=== PATIENT | male | born 1985 | race Caucasian/White ===

== ENCOUNTER 2025-11-19 16:10 | Emergency (ER) | payer OTHER, SELFPAY ==
--- NOTE | ~2025-11-19 | XR_ITS ---
EXAMINATION: XR chest 2V 11/19/2025 17:31 INDICATION: Shortness of breath and chest pain PROCEDURE: 2 view chest COMPARISON: No prior studies for comparison. FINDINGS: The lungs are clear. The cardiomediastinal silhouette is within normal limits. There are no pleural effusions. There is no pneumothorax suspected. IMPRESSION: 1: NO ACUTE CARDIOPULMONARY DISEASE. Reviewed, dictated and finalized at location O. RIALS ASSISTANT
[2025-11-19 16:46] VITALS: BP 131/87; PULSE 106; RESP 22; TEMP 36.3; O2SAT 100
--- NOTE | 2025-11-19 16:46 | ECG_ITS ---
Test Date: 2025-11-19 16:55:19 Measurements Intervals [place] Rate: 98 P: 43 MN: 130 QRS: 28 QRSD: 88 T: 28 QT: 320 QTc: 409 Interpretive Statements SINUS RHYTHM NONSPECIFIC T-WAVE ABNORMALITY- INFERIOR LEADS BORDERLINE ECG No previous ECG available for comparison Electronically Signed On 11-19-2025 20:16:32 ENTERPRISE SYSTEMS ADMINISTRATOR by Momo Barragan D.O.
--- NOTE | 2025-11-19 16:58 | ED_ITS ---
HPI - General Adult General Chief complaint: Shortness of Breath/Dyspnea <HERNANDEZ Meyer Last Filed: 11/19/25 17:04> Stated complaint: SOB, dizziness, hx anxiety but worse <HERNANDEZ Meyer Last Filed: 11/19/25 17:04> Time Seen by Provider: 11/19/25 16:58 <HERNANDEZ Meyer Last Filed: 11/19/25 17:04> Focused HPI: Patient is a 40 y/o male, with PMH of panic disorder, who presents to the ED with c/o CP/SOB. Patient reports over the past 2-3 weeks, he has been having intermittent episodes of dizziness/lightheadedness, SOB, sharp pains in his L sided chest/arm. States episodes have been mild initially, but he had a more severe episode today, which prompted his presentation. Does have hx of anxiety/panic attacks, but states this feels different. Denies palpitations. Denies syncope, HI, HAs, pain/swelling in legs. Has been working out more strenuously recently. GENERAL: Anxious-appearing, well-nourished, and in no acute distress. HEAD: Normocephalic, atraumatic. CHEST: Clear to auscultation. ?No respiratory distress. HEART: Borderline tachycardic with regular rhythm.? NEURO: ?Alert and oriented x3. Patient screened in triage and initial orders placed.? ?Additional care and disposition to be based upon?diagnostic testing and treatment. <HERNANDEZ Meyer Last Filed: 11/19/25 17:04> Source: patient <HERNANDEZ Meyer Last Filed: 11/19/25 17:04> Mode of arrival: ambulatory <HERNANDEZ Meyer Last Filed: 11/19/25 17:04> Limitations: no limitations <HERNANDEZ Meyer Last Filed: 11/19/25 17:04> History of Present Illness HPI narrative: Patient 40-year-old gentleman presents emergency department chief complaint of chest discomfort patient states that he has history of anxiety disorder reports that recently he has been having more episodes of chest discomfort and reports that today got worse the patient states he decided to come the emergency department demonstrated have any kind of cardiac event he < John Gillespie MD - Last Filed: 11/19/25 20:31> Related Data Allergies/adverse reactions: Allergies Allergy/AdvReac Type Severity Reaction Status Date / Time No Known Allergies Allergy Verified 11/19/25 16:50 <Anna Marie Hernandez PA-C - Last Filed: 11/19/25 17:04> Review of Systems 2 Review of Systems: A 10 system review of systems was completed on the patient and is negative except for what is stated in the HPI. Nursing and ancillary documentation was reviewed. <John Gillespie MD - Last Filed: 11/19/25 20:31> Exam 2 Narrative: GENERAL: Well-appearing, well-nourished, and in no acute distress. HEAD: Normocephalic, atraumatic. EYES: PERRLA and EOMI. ENT: Nares clear, no rhinorrhea or epistaxis. Mucous membranes moist. NECK: Supple. CHEST: Clear to auscultation. No respiratory distress. HEART: Regular rate and rhythm. No murmur heard. Normal peripheral pulses. ABDOMEN: Soft, nontender, nondistended, normal active bowel sounds. EXTREMITIES: Normal range of motion. No edema. SKIN: Warm, dry, no rash. NEURO: No focal deficits. Alert and oriented x3. PSYCH: Normal mood and affect. <John Gillespie MD - Last Filed: 11/19/25 20:31> Course Vital Signs Vital signs: Vital Signs Temperature 36.3 C L 11/19/25 16:46 Pulse Rate 106 H 11/19/25 16:46 Respiratory Rate 22 H 11/19/25 16:46 Blood Pressure 131/87 11/19/25 16:46 Pulse Oximetry 100 11/19/25 16:46 Oxygen Delivery Room Air 11/19/25 16:46 Temperature 36.6 C 11/19/25 18:56 Pulse Rate 102 H 11/19/25 18:56 Respiratory Rate 20 11/19/25 18:56 Blood Pressure 137/90 11/19/25 18:56 Pulse Oximetry 99 11/19/25 18:59 Oxygen Delivery Room Air 11/19/25 18:59 <Anna Marie Hernandez PA-C - Last Filed: 11/19/25 17:04> Vital Signs Temperature 36.3 C L 11/19/25 16:46 Pulse Rate 106 H 11/19/25 16:46 Respiratory Rate 22 H 11/19/25 16:46 Blood Pressure 131/87 11/19/25 16:46 Pulse Oximetry 100 11/19/25 16:46 Oxygen Delivery Room Air 11/19/25 16:46 Temperature 36.6 C 11/19/25 18:56 Pulse Rate 102 H 11/19/25 18:56 Respiratory Rate 20 11/19/25 18:56 Blood Pressure 137/90 11/19/25 18:56 Pulse Oximetry 99 11/19/25 18:59 Oxygen Delivery Room Air 11/19/25 18:59 <John Gillespie MD - Last Filed: 11/19/25 20:31> MDM MDM Narrative Medical decision making narrative: MSE by STEPH in triage <Anna Marie Hernandez PA-C - Last Filed: 11/19/25 17:04> Differential Diagnosis Differential Diagnosis: ACS, viral, dysrhythmia, PE, D-dimer was negative EKG showed no acute ischemic changes initial troponin was-3 hour troponin was negative. The patient be discharged home to follow-up with his primary care provider <John Gillespie MD - Last Filed: 11/19/25 20:31> Lab Data [facility] Lab Attestation statement: I personally reviewed the patient's lab results. <John Gillespie MD - Last Filed: 11/19/25 20:31> Result diagrams: 11/19/25 17:23 11/19/25 17:23 <Anna Marie Hernandez PA-C - Last Filed: 11/19/25 17:04> Labs: Lab Results 11/19/25 11/19/25 Range/Units 17:23 19:54 WBC 7.4 (4.5-10.0) K/mm3 RBC 5.47 (4.6-6.20) M/mm3 Hgb 16.8 (14.0-18.0) g/dL Hct 49.9 (42.0-52.0) % MCV 91.2 (80-100) fl MCH 30.7 (26-34) pg MCHC 33.7 (32-36) g/dl RDW 11.8 (11.5-14.5) % Plt Count 301 (150-375) k/mm3 MPV 9.4 (7.4-10.4) fl Immature Gran % (Auto) 0.5 (0-0.5) % Neut % (Auto) 67.4 (45.5-73.1) % Lymph % (Auto) 22.8 (18.3-44.2) % [place] % (Auto) 6.9 (2.6-8.5) % Eos % (Auto) 1.9 (0-4.4) % Baso % (Auto) 0.5 (0.2-1.2) % Lymph # (Auto) 1.70 (0.9-3.2) K/mm3 [place] # (Auto) 0.5 (0.1-0.6) K/mm3 Eos # (Auto) 0.1 (0-0.3) K/mm3 Baso # (Auto) 0.0 (0.0-0.1) K/mm3 Abs Immat Gran (auto) 0.04 H (0.00-0.031) K/mm3 Absolute Neuts (auto) 5.0 (1.3-6.7) K/mm3 Absolute Nucleated RBC 0.000 (0.0-0.012) K/mm3 Nucleated RBC % 0.0 (0.0-0.2) % PT 13.2 (11.1-14.7) Seconds INR 1.0 APTT 25.6 (22.3-36.8) Seconds D-Dimer < 0.27 (<0.48) ug/mL Sodium 139 (137-145) mmol/L Potassium 3.8 (3.4-5.0) mmol/L Chloride 102 (98-107) mmol/L Carbon Dioxide 27 (22-30) mmol/L Anion Gap 10 (4-12) mmol/L BUN 13 (9-20) mg/dL Creatinine 1.13 (0.7-1.3) mg/dL Estim Creat Clear Calc Not Reportable Estimated GFR > 60 (59 - ) Glucose 106 (65-110) mg/dL Calcium 9.6 (8.4-10.2) mg/dL Magnesium 2.0 (1.6-2.3) mg/dL Total Bilirubin 0.7 (0.2-1.3) mg/dL AST 40 (17-59) U/L ALT 56 H (6-50) U/L Alkaline Phosphatase 86 (38-126) U/L Total Creatine Kinase 94 (55-170) U/L Troponin I < 0.012 < 0.012 (0.000-0.034) ng/mL Total Protein 8.5 H (6.3-8.2) g/dL Albumin 4.9 (3.5-5.1) g/dL Lipase 46 (23-300) U/L TSH (Reflex) 2.440 (0.465-4.68) uIU/mL <Anna Marie Hernandez PA-C - Last Filed: 11/19/25 17:04> Lab Results 11/19/25 11/19/25 Range/Units 17:23 19:54 WBC 7.4 (4.5-10.0) K/mm3 RBC 5.47 (4.6-6.20) M/mm3 Hgb 16.8 (14.0-18.0) g/dL Hct 49.9 (42.0-52.0) % MCV 91.2 (80-100) fl MCH 30.7 (26-34) pg MCHC 33.7 (32-36) g/dl RDW 11.8 (11.5-14.5) % Plt Count 301 (150-375) k/mm3 MPV 9.4 (7.4-10.4) fl Immature Gran % (Auto) 0.5 (0-0.5) % Neut % (Auto) 67.4 (45.5-73.1) % Lymph % (Auto) 22.8 (18.3-44.2) % [place] % (Auto) 6.9 (2.6-8.5) % Eos % (Auto) 1.9 (0-4.4) % Baso % (Auto) 0.5 (0.2-1.2) % Lymph # (Auto) 1.70 (0.9-3.2) K/mm3 [place] # (Auto) 0.5 (0.1-0.6) K/mm3 Eos # (Auto) 0.1 (0-0.3) K/mm3 Baso # (Auto) 0.0 (0.0-0.1) K/mm3 Abs Immat Gran (auto) 0.04 H (0.00-0.031) K/mm3 Absolute Neuts (auto) 5.0 (1.3-6.7) K/mm3 Absolute Nucleated RBC 0.000 (0.0-0.012) K/mm3 Nucleated RBC % 0.0 (0.0-0.2) % PT 13.2 (11.1-14.7) Seconds INR 1.0 APTT 25.6 (22.3-36.8) Seconds D-Dimer < 0.27 (<0.48) ug/mL Sodium 139 (137-145) mmol/L Potassium 3.8 (3.4-5.0) mmol/L Chloride 102 (98-107) mmol/L Carbon Dioxide 27 (22-30) mmol/L Anion Gap 10 (4-12) mmol/L BUN 13 (9-20) mg/dL Creatinine 1.13 (0.7-1.3) mg/dL Estim Creat Clear Calc Not Reportable Estimated GFR > 60 (59 - ) Glucose 106 (65-110) mg/dL Calcium 9.6 (8.4-10.2) mg/dL Magnesium 2.0 (1.6-2.3) mg/dL Total Bilirubin 0.7 (0.2-1.3) mg/dL AST 40 (17-59) U/L ALT 56 H (6-50) U/L Alkaline Phosphatase 86 (38-126) U/L Total Creatine Kinase 94 (55-170) U/L Troponin I < 0.012 < 0.012 (0.000-0.034) ng/mL Total Protein 8.5 H (6.3-8.2) g/dL Albumin 4.9 (3.5-5.1) g/dL Lipase 46 (23-300) U/L TSH (Reflex) 2.440 (0.465-4.68) uIU/mL <John Gillespie MD - Last Filed: 11/19/25 20:31> Imaging Data Radiologist's impression: ITS Impressions Chest X-Ray 11/19/25 17:51 IMPRESSION: 1: NO ACUTE CARDIOPULMONARY DISEASE. <Anna Marie Hernandez PA-C - Last Filed: 11/19/25 17:04> ITS Impressions Chest X-Ray 11/19/25 17:51 IMPRESSION: 1: NO ACUTE CARDIOPULMONARY DISEASE. <John Gillespie MD - Last Filed: 11/19/25 20:31> Discharge Plan Discharge Clinical Impression: Atypical chest pain <Anna Marie Hernandez PA-C - Last Filed: 11/19/25 17:04> Patient Disposition: Home <Anna Marie Hernandez PA-C - Last Filed: 11/19/25 17:04> Condition: Stable <Anna Marie Hernandez PA-C - Last Filed: 11/19/25 17:04> Instructions: Antibiotic Form <Anna Marie Hernandez PA-C - Last Filed: 11/19/25 17:04> Patient Language: Gambian <Anna Marie Hernandez PA-C - Last Filed: 11/19/25 17:04> Follow-up/Referrals: PHYSICIAN NOT ON STAFF,NONSTAFF [Primary Care Provider] <Anna Marie Hernandez PA-C - Last Filed: 11/19/25 17:04> Time of Disposition: 20:31 <Anna Marie Hernandez PA-C - Last Filed: 11/19/25 17:04> 20:31 <John Gillespie MD - Last Filed: 11/19/25 20:31> Quality HEART score for chest pain patients History: slightly suspicious <John Gillespie MD - Last Filed: 11/19/25 20:31> ECG: normal <John Gillespie MD - Last Filed: 11/19/25 20:31> Age: < or = to 45 years <John Gillespie MD - Last Filed: 11/19/25 20:31> Risk factors: 1 or 2 risk factors <John Gillespie MD - Last Filed: 11/19/25 20:31> Troponin: < or = to 1x normal limit <John Gillespie MD - Last Filed: 11/19/25 20:31> Heart score: 1 <John Gillespie MD - Last Filed: 11/19/25 20:31>
[2025-11-19 17:29] LABS: Hematocrit 49.9 % (42.0-52.0); Hemoglobin 16.8 g/dL (14.0-18.0); Immature Granulocyte Percent A 0.5 % (0-0.5); Lymphocytes Absolute Auto 1.70 K/mm3 (0.9-3.2); Mean Corpuscular HGB Conc 33.7 g/dl (32-36); Mean Corpuscular Hemoglobin 30.7 pg (26-34); Mean Corpuscular Volume 91.2 fl (80-100); Nucleated Red Blood Cells Absolute Auto 0.000 K/mm3 (0.0-0.012); Nucleated Red Blood Cells Perc 0.0 % (0.0-0.2); Platelet Count Result 301 k/mm3 (150-375); Red Blood Count 5.47 M/mm3 (4.6-6.20); White Blood Count 7.4 K/mm3 (4.5-10.0)
[2025-11-19 17:43] LABS: INR 1.0; Partial Thromboplastin Time 25.6 Seconds (22.3-36.8); Prothrombin Time 13.2 Seconds (11.1-14.7)
[2025-11-19 17:46] LABS: Alanine Aminotransferase 56 U/L (6-50); Albumin Level 4.9 g/dL (3.5-5.1); Alkaline Phosphatase 86 U/L (38-126); Anion Gap 10 mmol/L (4-12); Aspartate Amino Transferase 40 U/L (17-59); Bilirubin,Total 0.7 mg/dL (0.2-1.3); Blood Urea Nitrogen 13 mg/dL (9-20); Calcium 9.6 mg/dL (8.4-10.2); Carbon Dioxide 27 mmol/L (22-30); Chloride 102 mmol/L (98-107); Creatine Kinase 94 U/L (55-170); Estimated Glomerular Filt Rate > 60; Glucose 106 mg/dL (65-110); Lipase 46 U/L (23-300); Magnesium 2.0 mg/dL (1.6-2.3); Potassium 3.8 mmol/L (3.4-5.0); Sodium 139 mmol/L (137-145); Total Protein 8.5 g/dL (6.3-8.2)
[2025-11-19 17:53] LABS: Troponin I < 0.012 ng/mL (0.000-0.034)
[2025-11-19 18:11] LABS: Thyroid Stimulating Hormone Reflex 2.440 uIU/mL (0.465-4.68)
[2025-11-19 18:56] VITALS: BP 137/90; PULSE 102; RESP 20; TEMP 36.6; O2SAT 100
[2025-11-19 18:59] VITALS: O2SAT 99
--- NOTE | 2025-11-19 19:48 | ECG_ITS ---
Test Date: 2025-11-19 19:51:54 Measurements Intervals [place] Rate: 90 P: 27 MD: 134 QRS: 38 QRSD: 80 T: 45 QT: 332 QTc: 407 Interpretive Statements SINUS RHYTHM NORMAL ECG Compared to ECG 11/19/2025 16:55:19 NO SIGNIFICANT CHANGE Electronically Signed On 11-19-2025 20:15:00 BENDING MACHINE OPERATOR by Momo Barragan D.O.
[2025-11-19 20:23] LABS: Troponin I < 0.012 ng/mL (0.000-0.034)
--- OUTSIDE RECORDS SUMMARY | 2025-11-19 20:43 | XMS_ITS | Clinical Summary ---
Author Organization [facility] [address] Address [address] [place] [address] Care Team Providers Care Fitness Consultant Name Role Phone Nicole Sánchez MD Primary Care Provider + Allergies No known active allergies Medications ALPRAZolam (XANAX) 0.25 mg tabletIndication s:Anxiety Take one tab orally once a day 30 tablet 1 10/11/2025 Active Active Problems Problem Noted Date Diagnosed Date Overweight with body mass in dex (BMI) of 27 to 27.9 in adult 01/03/2025 Elevated ALT measurement 03/13/2024 Mixed hyperlipidemia 03/13/2024 Intermittent lightheadedness 01/17/2024 Chronic left shoulder pain 12/29/2023 Anxiety 12/29/2023 Encounters Date Type Department Care Team Description 10/11/2025 2:15 PM CUSTOMER SERVICES MANAGER Telemedicine [facility] [place] [address] [place] [address] Nicole Sánchez MD Anxiety (Primary Dx); Overweight with body mass index (BMI) of 27 to 27.9 in adult from Last 3 Months Immunizations Immunization Administration Dates Next Due Influenza, Quadrivalent, Helga l Culture-based MDCK, Preservative Free, Antibiotic Free, Intramuscular 09/30/2022 Influenza, Quadrivalent, Spl it, Preservative Free, Intramuscular 11/07/2018 Influenza, Unspecified 08/29/2024(Deferr ed: Patient decision),08/29/2023(Deferred: Patient decision) Social History Tobacco Use Types Packs/Day Years Used Date Smoking Tobacco: Never Passive Smoke Exposure: Never Tobacco Cessation:Counseling Given: Not Answered PHQ-2 Answer Date Recorded PHQ-2 Total Score (If total score is 3 or more points, staff should administer the PHQ-9) 0 10/11/2025 Sex and Gender Information Value Date Recorded Sex Assigned at Not on file Legal Sex Male 6:20 PM CUSTOMER SERVICES MANAGER Gender Identity Not on file Sexual Orientation Not on file Last Filed Vital Signs Vital Sign Reading Time Taken Comments Blood Pressure 110/66 01/03/2025 10:56 AM CUSTOMER SERVICES MANAGER Pulse 98 01/03/2025 10:56 AM CUSTOMER SERVICES MANAGER Temperature - - Respiratory Rate - - Oxygen Saturation 97% 01/03/2025 10:56 AM CUSTOMER SERVICES MANAGER Inhaled Oxygen Concentration - - Weight 78.9 kg (174 lb) 10/11/2025 2:14 PM CUSTOMER SERVICES MANAGER Height 170.2 cm (5' 7) 10/11/2025 2:14 PM CUSTOMER SERVICES MANAGER Body Mass Index 27.25 10/11/2025 2:14 PM CUSTOMER SERVICES MANAGER Plan of Treatment Health Maintenance Due Date Last Done Comments Hepatitis C Screening 1986 DTaP/Tdap/Td Vaccine (1 - Tdap) 1997 Varicella Vaccines (1 of 2 - 13+ 2-dose series) 1999 Hepatitis B Screening 01/30/2004 Regular Well Visit/Exam 18-64 01/30/2004 HPV Vaccines (1 - 3-dose SCD M series) 2013 Covid-19 Vaccine (2 - 2024-2 6 season) 2025 05/15/2021 Influenza Vaccine (#1) 2025 2, 11/07/2018 Depression Screening 10/11/2026 10/11/2025, 01/03/2025, 12/29/2023 Pneumococcal vaccine <65 Aged Out No longer eligible based on patient's age to complete this topic Insurance [facility] PLUS LOCAL PLUS Care Teams Fitness Consultant Relationship Specialty Start Date End Date Nicole Sánchez MD [address] [place] [address] PCP - General Family Medicine 12/29/23
--- OUTSIDE RECORDS SUMMARY | 2025-11-19 20:43 | XMS_ITS | Clinical Summary ---
Author Organization [facility] Address [address] [place] [place] [address] Care Team Providers Care Program Coordinator Executive Education Name Role Phone Unknown, Provider Primary Care Provider Unavaila ble Source Comments [facility],non-owned Affiliates and Associated Physician Practices is amultiple site organization consisting of ambulatory clinics and hospital sitesin [place], [place], [place] and [place]. This disclosure is being madepursuant to the Care Everywhere program and may not contain all information available regarding this patient. Last updated 18.[employer] [facility] Allergies No known active allergies Medications * Be aware that medications may not be up to date on this document. Alwaysverify current medications with the patient. Escitalopram Oxalate (LEXAPRO PO) Active Active Problems Problem Noted Date Diagnosed Date Testicular mass 12/22/2011 Right inguinal pain 12/22/2011 Family History Medical History Relation Name Comments Stroke Maternal Grandmother Relation Name Status Comments Maternal Grandmother Social History Tobacco Use Types Packs/Day Years Used Date Smoking Tobacco: Former Smokeless Tobacco: Never Alcohol Use Standard Drinks/Week Comments Yes 0 (1 standard drink = 0.6 oz pur e alcohol) several times a week Sex and Gender Information Value Date Recorded Sex Assigned at Not on file Legal Sex Male 9:39 AM BICYCLE TECHNICIAN Gender Identity Not on file Sexual Orientation Not on file Last Filed Vital Signs Vital Sign Reading Time Taken Comments Blood Pressure 118/72 11/15/2018 2:12 PM BICYCLE TECHNICIAN Pulse 103 11/15/2018 2:12 PM BICYCLE TECHNICIAN Temperature 36.9 C (98.4 F) 11/15/2018 2:12 PM BICYCLE TECHNICIAN Respiratory Rate 16 11/15/2018 2:12 PM BICYCLE TECHNICIAN Oxygen Saturation 96% 11/15/2018 2:12 PM BICYCLE TECHNICIAN Inhaled Oxygen Concentration - - Weight 66.2 kg (146 lb) 11/15/2018 2:12 PM BICYCLE TECHNICIAN Height 170.2 cm (5' 7) 11/15/2018 2:12 PM BICYCLE TECHNICIAN Body Mass Index 22.87 11/15/2018 2:12 PM BICYCLE TECHNICIAN Plan of Treatment Health Maintenance Due Date Last Done Comments HIV SCREENING 2001 HEPATITIS C SCREENING 01/25/2004 DTAP/TDAP/TD VACCINES (1 - Tdap) 2005 HEPATITIS B VACCINE (1 of 3 - 19+ 3-dose series) 2005 HPV VACCINE (1 - 3-dose SCDM series) 2013 DEPRESSION SCREENING 11/29/2024 COVID-19 VACCINE (1 - 2024-2 6 season) 2025 INFLUENZA VACCINE (#1) 2025 ZOSTER VACCINE (1 of 2) 01/30/2036 HIB VACCINE Aged Out No longer eligi ble based on patient's age to complete this topic MENINGOCOCCAL (Group B) VACC INE SHARED DECISION-MAKING Aged Out No longer eligibl e based on patient's age to complete this topic MENINGOCOCCAL GROUPS A/C/Y/W VACCINE Aged Out No longer eligible b ased on patient's age to complete this topic PNEUMOCOCCAL VACCINE Aged Out No long er eligible based on patient's age to complete this topic Insurance [facility] Care Teams Program Coordinator Executive Education Relationship Specialty Start Date End Date Unknown, Provider PCP - General 01/04/17
[2025-11-19 21:47] VITALS: BP 150/80; PULSE 88; RESP 16; O2SAT 100
== END 2025-11-19 21:48 | disposition home or self-care (01) ==
LOC: ANHED 20:41
PROVIDERS: Emergency Medicine; Physician Assistant; Emergency Provider Emergency Medicine
DX: R07.89 Other chest pain (principal); R94.31 Abnormal electrocardiogram [ECG] [EKG]
CPT/HCPCS: 36415; 71046; 80053; 82550; 83690; 83735; 84443; 84484; 85025; 85380; 85610; 85730; 93005; 99284